=== PATIENT | male | born 1950 | race African-American/Black ===

== ENCOUNTER 2016-05-31 19:00 | Emergency (ER) | payer OTHER ==
[~2016-05-31] VITALS: Ht 177.8 cm; Wt 90.7 kg
[~2016-05-31 19:00] MED LIST: ASPI-482 PO; BP med
[2016-05-31 20:11] VITALS: BP 138/88
--- NOTE | 2016-05-31 20:16 | PHYS DOC ---
Past Medical History Past Medical History: Anxiety, High Cholesterol, Hypertension, Other Additional Past Medical Histor: a-fib,sicksinus syndrome Past Surgical History: Other Additional Past Surgical Histo: pacemaker,cardiac ablation,hernia repair, colonoscopy x2 Alcohol Use: None Drug Use: None Adult General Chief Complaint Chief Complaint: HYPERTENSION HPI HPI 66-year-old male presenting the emergency department with high blood pressure. He denies any chest pain shortness of breath vision changes back pain blood in urine or blood in stool. He denies any pain. He reports being asymptomatic. Review of Systems Review of Systems ROS negative for chest pain shortness of breath abdominal pain nausea vomiting. All other review of systems is negative unless otherwise noted in history of present illness. Allergies Allergies Allergies Coded Allergies Type Severity Reaction Last Updated Verified fexofenadine Allergy Intermediate 10/14/15 Yes Physical Exam Physical Exam Constitutional: Well developed, well nourished, no acute distress, non-toxic appearance. [] HENT: Normocephalic, atraumatic, bilateral external ears normal, oropharynx moist, no oral exudates, nose normal. [] Eyes: PERRLA, EOMI, conjunctiva normal, no discharge. [] Neck: Normal range of motion, no tenderness, supple, no stridor. [] Cardiovascular:Heart rate regular rhythm, no murmur [] Lungs & Thorax: Bilateral breath sounds clear to auscultation [] Abdomen: Bowel sounds normal, soft, no tenderness, no masses, no pulsatile masses. [] Skin: Warm, dry, no erythema, no rash. [] Back: No tenderness, no CVA tenderness. [] Extremities: No tenderness, no cyanosis, no clubbing, ROM intact, no edema. [] Neurologic: Alert and oriented X 3, normal motor function, normal sensory function, no focal deficits noted. [] Psychologic: Affect normal, judgement normal, mood normal. [] Current Patient Data Vital Signs Vital Signs Date Time Temp Pulse Resp B/P Pulse Ox O2 Delivery O2 Flow Rate FiO2 05/31/16 20:11 64 138/88 99 Room Air 05/31/16 19:31 97.4 16 97.4 EKG EKG [] Radiology/Procedures Radiology/Procedures [] Course & Med Decision Making Course & Med Decision Making Pertinent Labs and Imaging studies reviewed. (See chart for details) [] 66-year-old gentleman presenting with asymptomatic hypertension. While the patient was in our emergency Department his blood pressure came down to 120/80 without any intervention. He was without any evidence of end organ dysfunction. He was subsequent discharged home to follow up with his primary care doctor within 2 days for blood pressure management. Dragon Disclaimer Dragon Disclaimer This electronic medical record was generated, in whole or in part, using a voice recognition dictation system. Departure Departure Impression: Primary Impression: Hypertension Disposition: HOME, SELF-CARE Condition: STABLE Referrals: RILEY GONZALES MD (PCP) Patient Instructions: Hypertension Additional Instructions: Thank you for allowing us to participate in your care today. Followup with your primary care physician in 3 days if your symptoms do not improve. If you do not have a primary care provider you can ask for a list of our primary care providers. Return to the emergency department you have any new or concerning findings. This should be evaluated by the primary care physician and any necessary consulting services for continued management within a few days after discharge. Return to emergency room if you have any new or concerning symptoms including but not limited to fever, chills, nausea, vomiting, intractable pain, any new rashes, chest pain, shortness of air, uncontrolled bleeding, difficulty breathing, and/or vision loss. HARI SOFIA MD May 31, 2016 20:15
== END 2016-05-31 20:31 | disposition home or self-care (01) ==
LOC: ER 19:00
DX: I10 Essential (primary) hypertension (principal); F41.9 Anxiety disorder, unspecified; E78.00 Pure hypercholesterolemia, unspecified; I48.91 Unspecified atrial fibrillation; I49.5 Sick sinus syndrome; Z95.0 Presence of cardiac pacemaker; Z88.8 Allergy status to other drugs, medicaments and biological substances
CPT/HCPCS: 99284

== ENCOUNTER 2016-06-21 04:11 | Emergency (ER) | payer OTHER ==
[~2016-06-21] VITALS: Ht 177.8 cm; Wt 90.7 kg
[2016-06-21 05:09] LABS: BASO % 0 % (0-3); EOS % 1 % (0-3); HEMOGLOBIN 15.8 g/dL (13.0-17.5); LYMPH # 3.5 x10^3/uL (1.0-4.8); LYMPH % 37 % (24-48); MEAN CORPUSCULAR HEMOGLOBIN 32 pg (25-35); MEAN CORPUSCULAR HGB CONC 33 g/dL (31-37); MEAN CORPUSCULAR VOLUME 97 fL (79-100); MONO % 11 % (0-9); NEUT % 51 % (31-73); PLATELET COUNT 180 x10^3/uL (140-400); RED BLOOD COUNT 4.97 x10^6/uL (4.30-5.70); RED CELL DISTRIBUTION WIDTH 14.9 % (11.5-14.5); WHITE BLOOD COUNT 9.5 x10^3/uL (4.0-11.0)
[2016-06-21 05:18] LABS: CALCIUM 9.3 mg/dL (8.5-10.1); POTASSIUM 3.7 mmol/L (3.5-5.1)
[2016-06-21 05:20] LABS: BILIRUBIN,URINE NEGATIVE (NEG); GLUCOSE,URINE NEGATIVE (NEG); NITRITE,URINE NEGATIVE (NEG); PROTEIN,URINE NEGATIVE (NEG-TRACE); UROBILINOGEN,URINE 0.2 mg/dL (0.2 mg/dL)
[2016-06-21 05:27] LABS: BARBITURATES NEG (NEG); BENZODIAZEPINES NEG (NEG); CANNABINOIDS NEG (NEG); COCAINE NEG (NEG); METHADONE NEG (NEG); OPIATES NEG (NEG); PHENCYCLIDINE NEG (NEG)
[2016-06-21 05:38] LABS: BACTERIA,URINE 0 /HPF (0-FEW); RBC,URINE 0 /HPF (0-2); SQUAMOUS EPITHELIAL CELL,UR OCC /LPF; WBC,URINE 0 /HPF (0-4)
[2016-06-21 05:41] LABS: ETHANOL, URINE NEG (NEG)
--- NOTE | 2016-06-21 05:48 | RAD ---
PROCEDURE CT head without contrast. HISTORY Hypertension, tinnitus. TECHNIQUE Helical CT imaging of the brain is performed without IV contrast. PQRS: One or more the following individualized dose reduction techniques were utilized for the study: 1. Automated exposure control. 2. Adjustment of the mA and/or kV according to patient size. 3. Use of iterative reconstruction technique. COMPARISON None. FINDINGS There is no midline shift or mass effect. No extra-axial fluid collection or intraparenchymal hemorrhage. Rock-white matter differentiation is preserved. Ventricles and sulci are normal for patient age. The visualized paranasal sinuses and mastoid air cells are clear. The globes and orbits appear intact. No acute calvarial abnormality. IMPRESSION No acute intracranial abnormality. Electronically signed by: Braxton Snider MD (Jun 21, 2016 05:46:38)
--- NOTE | 2016-06-21 06:14 | ED.ADGEN ---
Past Medical History Past Medical History: Anxiety, High Cholesterol, Hypertension, Other Additional Past Medical Histor: a-fib,sicksinus syndrome Past Surgical History: Other Additional Past Surgical Histo: pacemaker,cardiac ablation,hernia repair, colonoscopy x2 Alcohol Use: None Drug Use: None Adult General Chief Complaint Chief Complaint: RINGING IN EARS HPI HPI Patient is a 66 year old man, with a history of hypertension which is medically managed, since emergency Department with complaint of "ringing in my ears". Patient states this occurred previously, and has been linked to his blood pressure being high. He states that he was unable to sleep last night, due to Fernando ears, and when he checked his blood pressure it was 170/90. Patient states that he has been instructed to take a double dose of his blood pressure medication when this occurs, which she did home, but as the ring in his ears persisted he came to the ED for evaluation. Patient denies any chest pain, any shortness of breath, nausea or vomiting, any head injuries recently, although he has remote history of a concussion back in the 1970s, any weakness, numbness or tingling. He states that the ring actually is improved at this time. He states that he was evaluated with a scan of his head, and with an ENT evaluation about a year ago for allergies, but has not previously been evaluated for this ringing sensation, which she was told could be due to his blood pressure spiking. At this time his blood pressure is 136/84, heart rate is in the 80s, oxygen saturation is 98% on room air, respiratory rate is 18 and unlabored. Denies any medications aside from his prescribed medications, and one baby aspirin daily. Review of Systems Review of Systems Constitutional: Denies fever or chills. [] Eyes: Denies change in visual acuity. [] HENT: Denies nasal congestion or sore throat. "Ringing in the ears". [] Respiratory: Denies cough or shortness of breath. [] Cardiovascular: Denies chest pain or edema. [] GI: Denies abdominal pain, nausea, vomiting, bloody stools or diarrhea. [] : Denies dysuria. [] Musculoskeletal: Denies back pain or joint pain. [] Integument: Denies rash. [] Neurologic: Denies headache, focal weakness or sensory changes. [] Endocrine: Denies polyuria or polydipsia. [] Lymphatic: Denies swollen glands. [] Psychiatric: Denies depression or anxiety. [] Allergies Allergies Allergies Coded Allergies Type Severity Reaction Last Updated Verified fexofenadine Allergy Intermediate 10/14/15 Yes Physical Exam Physical Exam Constitutional: Well developed, well nourished, no acute distress, non-toxic appearance. [] HENT: Normocephalic, atraumatic, bilateral external ears normal, oropharynx moist, no oral exudates, nose normal. [] Eyes: PERRLA, EOMI, conjunctiva normal, no discharge. [] Neck: Normal range of motion, no tenderness, supple, no stridor. [] Cardiovascular:Heart rate regular rhythm, no murmur [] Lungs & Thorax: Bilateral breath sounds clear to auscultation [] Abdomen: Bowel sounds normal, soft, no tenderness, no masses, no pulsatile masses. [] Skin: Warm, dry, no erythema, no rash. [] Back: No tenderness, no CVA tenderness. [] Extremities: No tenderness, no cyanosis, no clubbing, ROM intact, no edema. [] Neurologic: Alert and oriented X 3, normal motor function, normal sensory function, no focal deficits noted. [] Psychologic: Affect normal, judgement normal, mood normal. [] Current Patient Data Vital Signs Vital Signs Date Time Temp Pulse Resp B/P Pulse Ox O2 Delivery O2 Flow Rate FiO2 06/21/16 07:03 60 18 123/78 98 Room Air 06/21/16 04:20 97.6 97.6 Lab Values Laboratory Tests Test 06/21/16 04:35 06/21/16 05:15 White Blood Count 9.5x10^3/uL (4.0-11.0) Red Blood Count 4.97x10^6/uL (4.30-5.70) Hemoglobin 15.8g/dL (13.0-17.5) Hematocrit 48.0% (39.0-53.0) Mean Corpuscular Volume 97fL (79-100) Mean Corpuscular Hemoglobin 32pg (25-35) Mean Corpuscular Hemoglobin Concent 33g/dL (31-37) Red Cell Distribution Width 14.9% (11.5-14.5) H Platelet Count 180x10^3/uL (140-400) Neutrophils (%) (Auto) 51% (31-73) Lymphocytes (%) (Auto) 37% (24-48) Monocytes (%) (Auto) 11% (0-9) H Eosinophils (%) (Auto) 1% (0-3) Basophils (%) (Auto) 0% (0-3) Neutrophils # (Auto) 4.9x10^3uL (1.8-7.7) Lymphocytes # (Auto) 3.5x10^3/uL (1.0-4.8) Monocytes # (Auto) 1.0x10^3/uL (0.0-1.1) Eosinophils # (Auto) 0.1x10^3/uL (0.0-0.7) Basophils # (Auto) 0.0x10^3/uL (0.0-0.2) Sodium Level 142mmol/L (136-145) Potassium Level 3.7mmol/L (3.5-5.1) Chloride Level 103mmol/L (98-107) Carbon Dioxide Level 32mmol/L (21-32) Anion Gap 7 (6-14) Blood Urea Nitrogen 12mg/dL (8-26) Creatinine 1.0mg/dL (0.7-1.3) Estimated GFR (Cockcroft-Gault) 91.0 Glucose Level 100mg/dL (70-99) H Calcium Level 9.3mg/dL (8.5-10.1) Urine Collection Type Unknown Urine Color Yellow Urine Clarity Clear Urine pH 6.0 Urine Specific [place] 1.010 Urine Protein Negativemg/dL (NEG-TRACE) Urine Glucose (UA) Negativemg/dL (NEG) Urine Ketones (Stick) Negativemg/dL (NEG) Urine Blood Negative (NEG) Urine Nitrite Negative (NEG) Urine Bilirubin Negative (NEG) Urine Urobilinogen Dipstick 0.2mg/dL (0.2 mg/dL) Urine Leukocyte Esterase Negative (NEG) Urine RBC 0/HPF (0-2) Urine WBC 0/HPF (0-4) Urine Squamous Epithelial Cells Occ/LPF Urine Bacteria 0/HPF (0-FEW) Urine Opiates Screen Neg (NEG) Urine Methadone Screen Neg (NEG) Urine Barbiturates Neg (NEG) Urine Phencyclidine Screen Neg (NEG) Urine Amphetamine/Methamphetamine Neg (NEG) Urine Benzodiazepines Screen Neg (NEG) Urine Cocaine Screen Neg (NEG) Urine Cannabinoids Screen Neg (NEG) Urine Ethyl Alcohol Neg (NEG) Laboratory Tests 06/21/16 04:35 Laboratory Tests 06/21/16 04:35 EKG EKG EC: Sinus rhythm, heart rate 61 bpm, upright axis, QTC of 380, AK 120, QRS of 78, mild baseline artifact noted, no significant ST elevations or depressions, abnormal ECG, does not meet STEMI criteria. As interpreted by me. [ ] Radiology/Procedures Radiology/Procedures [] [facility] [address] [place] [address] IMAGING REPORT Signed PATIENT: RATNA GONZALEZ ACCOUNT: [id number] : 1950 LOCATION: ER AGE: 66 SEX: M EXAM STATUS: REG ER ORD. PHYSICIAN: LEONID PERDOMO DO REASON: HTN/tinnitus PROCEDURE: HEAD WO CONTRAST PROCEDURE CT head without contrast. HISTORY Hypertension, tinnitus. TECHNIQUE Helical CT imaging of the brain is performed without IV contrast. PQRS: One or more the following individualized dose reduction techniques were utilized for the study: 1. Automated exposure control. 2. Adjustment of the mA and/or kV according to patient size. 3. Use of iterative reconstruction technique. COMPARISON None. FINDINGS There is no midline shift or mass effect. No extra-axial fluid collection or intraparenchymal hemorrhage. Rock-white matter differentiation is preserved. Ventricles and sulci are normal for patient age. The visualized paranasal sinuses and mastoid air cells are clear. The globes and orbits appear intact. No acute calvarial abnormality. IMPRESSION No acute intracranial abnormality. Electronically signed by: Braxton Snider MD (Jun 21, 2016 05:46:38) DICTATED and SIGNED BY: BRAXTON SNIDER MD DATE: 06/21/16 0546 CC: RILEY GONZALES MD; LEONID PERDOMO DO ~ Course & Med Decision Making Course & Med Decision Making Pertinent Labs and Imaging studies reviewed. (See chart for details) Patient well-appearing, with a normal neurologic examination, however due to his complaints of ringing in the ears, and hypertension, CT of the head obtained to rule out any occult cause of the symptoms. Repeat blood pressures are 130s over 70s, heart rate is in the 80s, CT of the head does not reveal any evidence of acutely concerning findings in the brain, sinuses are clear. I did discuss the signs of patient. He is currently completing a course of antibiotics for a possible ear infection on the left, and states he has been evaluated by ENT as stated, is frustrated with the fact that this ringing in the ears continues to come back. He states that he has been taking his blood pressure medication half a pill at a time multiple times a day over the past several days in attempt to control his blood pressure, which appears to be function properly in the emergency department as stated. I discussed with the patient I will speak Dr. Cervantes his grocery clerk for additional advice on this matter as there is no evidence of an emergent condition at this time. Dr. Cervantes or the patient continue his medication regimen, to take an extra half tablet of his blood pressure medication as as previously discussed, to follow- up in the office this week. Patient is agreeable to this plan, continues to be comfortable in the emergency department, with mild tinnitus as stated, to follow -up with Dr. Cervantes, and return to the ED for concerning symptoms as stated. Dragon Disclaimer Dragon Disclaimer This electronic medical record was generated, in whole or in part, using a voice recognition dictation system. Departure Impression: Primary Impression: Clicking tinnitus of both ears Additional Impression: Hypertension Disposition: 01 HOME, SELF-CARE Condition: IMPROVED Problem Qualifiers Additional Impression: Hypertension Hypertension type: essential hypertension Qualified Code: I10 - Essential ( primary) hypertension LEONID PERDOMO DO Jun 21, 2016 06:13
[2016-06-21 07:03] VITALS: BP 123/78
--- NOTE | 2016-06-21 07:58 | EKG ---
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
== END 2016-06-21 07:14 | disposition home or self-care (01) ==
LOC: ER 04:11
DX: H93.13 Tinnitus, bilateral (principal); I10 Essential (primary) hypertension; F41.9 Anxiety disorder, unspecified; E78.00 Pure hypercholesterolemia, unspecified; I48.91 Unspecified atrial fibrillation; I49.5 Sick sinus syndrome; Z95.0 Presence of cardiac pacemaker; Z88.8 Allergy status to other drugs, medicaments and biological substances; Z79.899 Other long term (current) drug therapy
CPT/HCPCS: 36415; 70450; 80048; 81001; 85027; 93005; 99285; G0481

== ENCOUNTER 2017-12-14 05:56 | Emergency (ER) | payer OTHER ==
[~2017-12-14] VITALS: Ht 177.8 cm; Wt 88.5 kg
[2017-12-14] MEDS ORDERED: CLON0.1T PO (06:26)
[2017-12-14 06:35] VITALS: BP 131/82
--- NOTE | 2017-12-14 06:56 | PHYS DOC ---
Past Medical History Past Medical History: A-Fib, Hypertension Additional Past Medical Histor: LOW T Past Surgical History: Pacemaker Additional Past Surgical Histo: ABLATION, COLONOSCOPY Alcohol Use: None Drug Use: None Adult General Chief Complaint Chief Complaint: HYPERTENSION HPI HPI Patient is a 67 year old male well-known to this facility presents with hypertension. Patient's currently on amlodipine 5 mg twice daily for elevated blood pressure. He states that when his blood pressures elevated he frequently experiences tinnitus. Last evening, the patient felt ringing in his ear and checked his blood pressure which was 190/105. Patient scheduled to take his amlodipine at 6 AM which she did prior to ED arrival. The pressure in the room is 160/90. Patient denies headache, change in vision, neck pain chest pain and palpitations. Patient's blood pressure medications were recently changed by Dr Cervantes. He is compliant with medications. No other acute symptoms or complaints.[] Review of Systems Review of Systems ROS as per HPI All other systems were reviewed and found to be within normal limits, except as documented in this note. Allergies Allergies Allergies Coded Allergies Type Severity Reaction Last Updated Verified fexofenadine Allergy Intermediate 10/14/15 Yes Physical Exam Physical Exam Constitutional: Well developed, well nourished, no acute distress, non-toxic appearance. [] HENT: Normocephalic, atraumatic, bilateral external ears normal, oropharynx moist, no oral exudates, nose normal. [] Eyes: PERRLA, EOMI, conjunctiva normal, no discharge. [] Neck: Normal range of motion, no tenderness, supple, no stridor. [] Cardiovascular:Heart rate regular rhythm, no murmur [] Lungs & Thorax: Bilateral breath sounds clear to auscultation [] Abdomen: Bowel sounds normal, soft, no tenderness. [] Skin: Warm, dry, no erythema. [] Back: No tenderness. [] Extremities: No tenderness, no cyanosis, no clubbing, ROM intact, no edema. [] Neurologic: Alert and oriented X 3, normal motor function, normal sensory function, no focal deficits noted. [] Psychologic: Affect normal, judgement normal, mood normal. [] Current Patient Data Vital Signs Vital Signs Date Time Temp Pulse Resp B/P (MAP) Pulse Ox O2 Delivery O2 Flow Rate FiO2 12/14/17 06:35 82 20 131/82 (98) 100 Room Air 12/14/17 05:58 98.0 98.0 EKG EKG [] Radiology/Procedures Radiology/Procedures [] Course & Med Decision Making Course & Med Decision Making Pertinent Labs and Imaging studies reviewed. (See chart for details) [] Dragon Disclaimer Dragon Disclaimer This electronic medical record was generated, in whole or in part, using a voice recognition dictation system. Departure Departure Impression: Primary Impression: Hypertension Disposition: HOME, SELF-CARE Condition: GOOD Patient Instructions: Hypertension Additional Instructions: Please continue to take amlodipine as directed. Take Clonidine as needed every 2 hours as needed for SBP>170 upto 4 hours before scheduled amlodipine dose. Follow-up with Dr. Cervantes in one to 2 weeks. Scripts Clonidine Hcl (CLONIDINE HCL) 0.1 Mg Tablet 1 TAB PO Q8HRS PRN for ELEVATED BP, SEE COMMENTS MDD 3, #30 TAB 2 Refills Prov: THO HUANG DO 12/14/17 THO HUANG DO Dec 14, 2017 06:56
--- NOTE | 2017-12-14 07:22 | EKG ---
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
== END 2017-12-14 06:44 | disposition home or self-care (01) ==
LOC: ER 05:56
DX: I10 Essential (primary) hypertension (principal); I48.91 Unspecified atrial fibrillation; Z88.8 Allergy status to other drugs, medicaments and biological substances
CPT/HCPCS: 93005; 99283-25

== ENCOUNTER 2019-02-03 12:08 | Emergency (ER) | payer MEDICARE, OTHER ==
[~2019-02-03] VITALS: Ht 177.8 cm; Wt 90.7 kg
[~2019-02-03 12:08] MED LIST changes: +CLON0.1T PO
--- NOTE | 2019-02-03 12:41 | PHYS DOC ---
Past Medical History Past Medical History: A-Fib, Hypertension Additional Past Medical Histor: LOW T Past Surgical History: Pacemaker Additional Past Surgical Histo: ABLATION, COLONOSCOPY,hernia repair Alcohol Use: None Drug Use: None Adult General Chief Complaint Chief Complaint: COUGH HPI HPI Patient is a 68 year old male that presents to the ER stating that he has been feeling congested and having sinus problems for several days and then finally he states a blood clot came out of his nose and then he started having a runny nose. [place] cough, denies shortness of breath, denies chest pain. The patient does state that he's been feeling a burning sensation around his pacemaker. He is worried the battery might be low. Denies any pain Review of Systems Review of Systems Constitutional: Denies fever or chills [] Eyes: Denies change in visual acuity, redness, or eye pain [] HENT: Denies nasal congestion or sore throat [] Respiratory: Denies cough or shortness of breath [] Cardiovascular: No additional information not addressed in HPI [] GI: Denies abdominal pain, nausea, vomiting, bloody stools or diarrhea [] : Denies dysuria or hematuria [] Musculoskeletal: Denies back pain or joint pain [] Integument: Denies rash or skin lesions [] Neurologic: Denies headache, focal weakness or sensory changes [] Endocrine: Denies polyuria or polydipsia [] All other systems were reviewed and found to be within normal limits, except as documented in this note. Allergies Allergies Allergies Coded Allergies Type Severity Reaction Last Updated Verified fexofenadine Allergy Intermediate 10/14/15 Yes Physical Exam Physical Exam Constitutional: Well developed, well nourished, no acute distress, non-toxic appearance. [] HENT: Normocephalic, atraumatic, bilateral external ears normal, oropharynx moist, no oral exudates, turbinates inflamed.. [] Eyes: PERRLA, EOMI, conjunctiva normal, no discharge. [] Neck: Normal range of motion, no tenderness, supple, no stridor. [] Cardiovascular:Heart rate regular rhythm, no murmur [] Lungs & Thorax: Bilateral breath sounds clear to auscultation [] Skin: Warm, dry, no erythema, no rash. [] Back: No tenderness, no CVA tenderness. [] Extremities: No tenderness, no cyanosis, no clubbing, ROM intact, no edema. [] Neurologic: Alert and oriented X 3, normal motor function, normal sensory function, no focal deficits noted. [] Psychologic: Affect normal, judgement normal, mood normal. [] Current Patient Data Vital Signs Vital Signs Date Time Temp Pulse Resp B/P (MAP) Pulse Ox O2 Delivery O2 Flow Rate FiO2 02/03/19 12:22 97.8 88 18 140/77 (98) 96 Room Air 97.8 EKG EKG [] Radiology/Procedures Radiology/Procedures [] Course & Med Decision Making Course & Med Decision Making Pertinent Labs and Imaging studies reviewed. (See chart for details) The patient appears to be having allergic rhinitis. Will have the patient's pacemaker interrogated as the patient is concerned about the pacemaker. Will have patient take Zyrtec, Flonase, and Mucinex at home. [employer] interrogated and looks fine. Battery has over 3 years remaining. Dragon Disclaimer Dragon Disclaimer This electronic medical record was generated, in whole or in part, using a voice recognition dictation system. Departure Departure Impression: Primary Impression: Allergic rhinitis Disposition: 01 HOME, SELF-CARE Condition: STABLE Referrals: RILEY GONZALES MD (PCP) Patient Instructions: Allergic Rhinitis Additional Instructions: Thank you for visiting [facility]. We appreciate you trusting us with your care. If any additional problems come up don't hesitate to return to visit us. Please follow up with your primary care provider so they can plan additional care if needed and know about the problem that you had. If symptoms worsen come back to the Emergency Department. Any concerning symptoms that start such as chest pain, shortness of air, weakness or numbness on one side of the body, running high fevers or any other concerning symptoms return to the ER. Please take Zyrtec, Flonase, and Mucinex at home per label instructions. Problem Qualifiers Primary Impression: Allergic rhinitis Allergic rhinitis trigger: unspecified Allergic rhinitis seasonality: unspecified Qualified Codes: J30.9 - Allergic rhinitis, unspecified DAYSI LOPEZ APRN Feb 03, 2019 12:41
[2019-02-03 12:52] VITALS: BP 135/74
== END 2019-02-03 13:22 | disposition home or self-care (01) ==
LOC: ER 12:08
DX: J30.9 Allergic rhinitis, unspecified (principal); I48.91 Unspecified atrial fibrillation; I10 Essential (primary) hypertension; Z95.0 Presence of cardiac pacemaker; Z88.8 Allergy status to other drugs, medicaments and biological substances
CPT/HCPCS: 99281